=== PATIENT | female | born 1990 | race Caucasian/White ===

== ENCOUNTER → 2018-03-13 06:38 | Outpatient (CLI) | payer OTHER, SELFPAY ==
--- NOTE | 2018-03-13 | DI.MRI.S_ITS ---
PROCEDURE: MR ANKLE LT WO CON INDICATIONS: LEFT ANKLE PAIN TECHNIQUE: Noncontrast sagittal T1 spin echo and T2 fast spin echo with fat saturation, axial proton density fast spin echo and T2 fast spin echo with fat saturation, coronal T1 spin echo and T2 fast spin echo with fat saturation through the ankle/hindfoot. COMPARISON: [facility], MR, ANKLE WITHOUT CONTRAST, 02/04/2017, 17:15. FINDINGS: Image quality: Excellent. Bones and joints: There are postsurgical changes demonstrated in the talus with a surgical tract demonstrated along the posterior facet of the subtalar joint. There is mild associated mild bone marrow edema along the margins of the tract. There is also an associated small osteochondral defect along the posterior subtalar joint. Postsurgical changes also demonstrated within the lateral malleolus related to prior Brostrom Gonzalez procedure. No hindfoot coalitions. No osteochondral injuries of the talar dome. No pathologic joint effusions. Medial structures: The posterior tibialis, flexor digitorum longus, and flexor hallucis longus tendons are intact. The posterior tibial neurovascular bundle appears normal within the tarsal tunnel, without extrinsic mass effect. The deltoid and spring ligaments appear intact. Lateral structures: There are postsurgical changes status post reconstruction of the anterior talar fibular and talofibular ligaments are grossly intact appearance of the graft. There is associated soft tissue thickening and intermediate signal. The posterior talofibular ligament appears intact. More superiorly, the anterior and posterior tibiofibular ligaments appear intact, as is the intermalleolar ligament. The tibiofibular syndesmosis is normal in width at 2 mm or less. The peroneus longus and brevis tendons appear intact with a small amount of peritendinous edema and tenosynovial fluid. Adjacent bony peroneal tubercle and retrotrochlear prominence are normal in size. The sinus tarsi demonstrates preserved fatty signal with mild edema. The calcaneonavicular and calcaneocuboid components of the bifurcate ligament appear intact. The dorsal calcaneocuboid ligament appears intact. Anterior structures: The tibialis anterior, extensor hallucis longus, and extensor digitorum longus tendons appear intact. The dorsal talonavicular ligament appears intact. Posterior and plantar structures: Achilles tendon is intact. Medial and lateral bands of the plantar fascia are of normal thickness. No abductor digiti quinti muscle atrophy to suggest Dutton neuropathy. IMPRESSION: 1. Postsurgical changes laterally with grossly intact appearance of the anterior tibiofibular and talofibular ligaments status post surgical repair. 2. Surgical tract within the talus demonstrated with an associated small osteochondral lesion along the posterior subtalar joint. 3. Mild peritendinitis and tenosynovitis along the peroneal tendons. Dictated by: Leoncio Ca M.D. on 03/13/2018 at 13:31 Approved by: Leoncio Ca M.D. on 03/13/2018 at 14:06
== END ==
PROVIDERS: Visit Provider Orthopaedic Surgery
DX: M76.72 Peroneal tendinitis, left leg (principal); M65.872 Other synovitis and tenosynovitis, left ankle and foot; M25.572 Pain in left ankle and joints of left foot
CPT/HCPCS: 73721

== ENCOUNTER → 2018-04-29 11:55 | Outpatient (CLI) | payer OTHER, SELFPAY ==
[2018-04-29 12:47] LABS: Hematocrit 42.8 % (36-46); Hemoglobin 14.2 g/dL (12.0-16.0); Mean Corpuscular HGB Conc 33.2 % (30-36); Mean Corpuscular Hemoglobin 30.2 PG (26-34); Mean Corpuscular Volume 90.9 fL (80-100); Platelet Count 233 X10^3/uL (150-400); Red Blood Cell Count 4.71 X10^6/uL (4.0-5.2); Red Cell Distribution Width 13.6 % (11.6-14.8); White Blood Cell Count 8.4 X10^3/uL (4.5-11.0)
[2018-04-29 13:00] LABS: BUN Creatinine Ratio 18.6 (6-22); Blood Urea Nitrogen 13 mg/dL (7-17); Calcium 9.1 mg/dL (8.4-10.2); Carbon Dioxide 24 mmol/L (22-32); Chloride 106 mmol/L (98-107); Estimated Glomerular Filt Rate > 60.0 mL/min (>60); Glucose 104 mg/dL (70-100); HEMOLYSIS < 15 (0-50); Potassium 4.3 mmol/L (3.4-5.1); Sodium 141 mmol/L (137-145)
== END ==
PROVIDERS: Visit Provider Orthopaedic Surgery Foot and Ankle Surgery
DX: Z01.812 Encounter for preprocedural laboratory examination (principal); G58.8 Other specified mononeuropathies; M25.372 Other instability, left ankle; M25.572 Pain in left ankle and joints of left foot; M76.72 Peroneal tendinitis, left leg
CPT/HCPCS: 36415; 80048; 85027

== ENCOUNTER 2018-05-09 09:58 | Day surgery (SDC) | payer OTHER, SELFPAY ==
[2018-05-05 16:42] VITALS: BMI 39.4
[2018-05-09] VITALS (9 sets, daily range): BP systolic 117–144; BP diastolic 53–91; PULSE 71–108; RESP 11–17; TEMP 36.3–36.9; O2SAT 96–100; BMI 39.4
[2018-05-09] MEDS: LACTATED RINGERS 1,000 ML 42 ML IV (10:53)
[2018-05-09] MEDS: MIDAZOLAM 2 MG/2 ML VIAL 1 MG IV (14:25)
--- NOTE | 2018-05-09 14:53 | SUR.PREOP ---
12;00 pt resting quietly waiting for surgery, updates provided.
--- NOTE | 2018-05-09 14:55 | SUR.PREOP ---
Block start time [1425] . Monitoring initiated and maintained throughout procedure. Oxygen and medications given per anesthesiologist instructions. Patient remained stable throughout procedure, no adverse reactions noted. Block end time [1440].
[2018-05-09] MEDS: fentaNYL 100 MCG/2 ML INJ 50 MCG IV (15:00)
--- NOTE | 2018-05-09 15:17 | PM.PREOP ---
Pre-operative Note Interval Note Pre-op Check: Yes History & Physical Reviewed by Physician and Yes Exam Performed Changes: No
[2018-05-09] MEDS: CEFAZOLIN 2 GM/100 ML FROZ.PIGGY IV (15:45)
--- NOTE | 2018-05-09 16:15 | SUR.OPER ---
Lateral on padded OR bed, head on pillow, gel axillary roll in place, bottom leg bent with gel pad under knee to foot, upper leg straight and supported with pillows. Upper arm supported by pillows and secured over bottom arm to padded arm board. Safety belt at hip, tape over blanket lower legs.
[2018-05-09] MEDS: BUPIVACAINE 0.5% (PF) VIAL 30 ML INJ (16:41)
[2018-05-09] MEDS: HYDROMORPHONE 2 MG INJ 0.5 MG IV ×4 (18:20→18:40)
[2018-05-09] MEDS: HYDROCODONE/ACET 5/325 TABLET 1 TAB PO (18:45)
--- NOTE | 2018-05-09 21:26 | P.OP_ITS ---
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 Secondary repair of collateral ligament of left ankle CPT 90768 2. Repair peroneal tendon left ankle CPT code 58344 3. Decompression nerve left lower extremity CPT 00810 Same procedure as scheduled: Yes Indications: The patient is a 28-year-old female has a past medical history consisting of multiple previous left ankle sprain including reconstruction with internal brace by outside providers. The patient had continued pain and instability of her left ankle despite numerous rounds of formal physical therapy boot braces and exercises. She also has symptomatic pain over her peroneal tendons and evidence of peroneal tendinosis on MRI. She also has a neuralgia of the superficial peroneal nerve at the lateral ankle. She also has evidence of hyper laxity of multiple joints on physical examination. She has failed previous operative reconstruction and non operative care. She has been indicated for revision repair collateral ligaments of the left ankle with allograft. And exploration of the peroneal tendons decompression of the superficial peroneal nerve. The risks and benefits of the procedure have been discussed with the patient even opportunity to ask questions. The risks of surgery include but are not limited to infection, malunion, nonunion, persistence of pain, damage to nerves and blood vessels, posttraumatic arthritis, DVT, PE, cardiopulmonary complications and . The patient expressed a thorough understanding of the risks and benefits of surgery and has elected to proceed. Consent was signed in the office. Surgeon: Johanna Jimenez Click Yes if Unassisted: Yes Anesthesia Type: General and Peripheral nerve block Operative Notes Findings: Extensive scarring of the previous lateral ankle ligamentous repair with a few remaining FiberWire suture remnants. Extensive adipose tissue in the anterior lateral ankle and scarring surrounding the superficial peroneal nerve as well as a focal area of a flattened superficial peroneal nerve located at the anterior lateral ankle joint. Nerve was noted to be in continuity. Peroneal tendons were explored there was extensive peroneal synovitis within the sheath as well as a low lying peroneus brevis musculature and a small posterior tear the peroneus brevis tendon. This was repaired with 3 0 Vicryl suture. The lateral ankle ligaments were repaired with a semi tendinosis allograft. And secured with tenodesis screws. Closure Type: primary Specimen(s): none sent Implants & Drains: Semitendinosus allograft tendon pre stitched and tensioned Ar[employer] bio tenodesis screws 4.75 x 15 mm (2) Applied: other (Splint) Estimated Blood Loss (mL): 10 Blood products transfused: none Tourniquet time (min): 90 Procedure in detail: In the preop holding area and the appropriate side and site was marked. The patient was brought to the operating room and positioned lateral on a oates bag after anesthesia was administered and all bony prominences were padded. An SCD was placed on the non operative leg. Well- padded thigh tourniquet was placed. The patient was prepped in the standard sterile fashion. A 3 step prep was completed with alcohol swabs chlorhexidine sponge and then standard ChloraPrep. A formal time-out procedure was performed confirming the patient the side and the site of surgery the presence of informed consent and the administration of appropriate preoperative antibiotics. All were in agreement. An Esmarch bandage was utilized to exsanguinate the lower extremity and the tourniquet was elevated to 300 mm of mercury and stayed there for 90 min. A curvilinear incision was made just off the posterior border of the fibula curving anteriorly and distally. The flaps were elevated carefully and an extra periosteal dissection was taken over the fibula distally. Peroneal tendon repair. Peroneal sheath was opened just off the back of the fibula with a cuff left to repair. Tendons were inspected. Peroneus brevis had a large low lying muscle belly and there was a large amount of tenosynovitis within the sheath. This was debrided back and the low-lying muscle was debrided. Next the peroneus brevis was noted to have a backside longitudinal tear. Tendon was debrided and repaired with a 3 0 Vicryl tubularizing stitch. Thorough tenosynovectomy was performed on the peroneus brevis and the peroneus longus tendons. Lateral ligament reconstruction: Attention was then turned to the lateral ligaments. The ATFL and CFL were previously repaired with another surgeon and the remnants from FiberWire from these procedures. These were noted to be intact but painful and there was still an increased anterior drawer on stress testing. With the patient's failure of previous treatment and hyperlaxity it was felt the allograft was the remaining step for reconstruction. The allograft semi tendinous was approximately 200 mm long and it was thawed and pre tensioned and sutured. It measured 4.5 mm and easily through slit through a 5 mm Sizer. Insertion of the ATFL was identified on the talus just off the acted articular surface at the junction of the neck and body. The guide pin was placed over the drill and this was reamed approximately 20 mm with a 5 mm drill. Next the fibular drill holes were made with 2 5 0.0 converging tunnels at the insertions of the ATFL and CFL respectively exiting posteriorly out the fibula. There was a small bone bridge posteriorly. Then the calcaneus drill holed was made lateral to medial under fluoroscopic guidance confirming no intra-articular penetration. The graft was then passed through the fibular tunnels next 1 of the ends was secured using a 4.5 bio tenodesis screw from [employer] into the talar tunnel. The remaining end of the graft was then measured and trimmed to the calcaneus hole and re-sutured with a fiber loop. This was then pulled through the calcaneus tunnel out the medial side with the guide pin. The repair was tensioned in neutral dorsiflexion and slight eversion by pulling on the calcaneal sutures. This was then secured with another 4.75 bio tenodesis screw. This provided good fixation and eliminated the anterior drawer laxity. Superficial peroneal nerve root decompression: Next the dissection was taken anteriorly and superficially to locate the superficial peroneal nerve. This was found proximally and followed distally. It was noted at the area of the anterior lateral ankle joint which would coincide with the proximal aspect of the patient's previous J-incision that the superficial peroneal nerve was flattened and widened. Again distally the was followed and decompressed and became a plump and around again. The nerve was thoroughly decompressed along its length within the incision. The extensor retinaculum and remaining scar type tissue that was protected during the dissection was then repaired over this to the fibular periosteum and the joint was closed. Peroneal sheath was closed with 2 O Vicryl and subcutaneous tissue with 4 0 Monocryl in the skin with 3 O nylon and samira. The tourniquet was released at the time of closure and hemostasis was achieved prior to closure. A sterile dressing was placed in a well-padded stirrup splint was placed. The patient was awoken from anesthesia and taken to the recovery room in good condition. Of note a preoperative block was placed by the anesthesia team in indicated for postoperative pain control. All counts were correct. Complications: none Condition: stable Disposition: PACU Plan for aftercare: The patient had a peripheral nerve block performed for postoperative pain management. The patient will be nonweightbearing on her left lower extremity she will maintain her splint will elevate above the heart level for the next 2 weeks. She will return to clinic for a wound check at that time. She will start taking aspirin 325 mg on postoperative day 1 for DVT prophylaxis.
== END 2018-05-09 19:29 | disposition home or self-care (01) ==
PROVIDERS: PCP Family Medicine; Visit Provider Orthopaedic Surgery Foot and Ankle Surgery
PROC: (CPT 27698; principal; 2018-05-09 12:15)
DX: M25.372 Other instability, left ankle (principal); M76.72 Peroneal tendinitis, left leg; G58.8 Other specified mononeuropathies; G89.18 Other acute postprocedural pain; M65.872 Other synovitis and tenosynovitis, left ankle and foot; F17.210 Nicotine dependence, cigarettes, uncomplicated
CPT/HCPCS: 27698; 27675; 64708; 64445; 64450; J0690; J1170; J2250; J2704; J2795; J3010